=== PATIENT | male | born 1975 | race African-American/Black ===

== ENCOUNTER 2018-08-03 22:08 | Emergency (ER) | payer SELFPAY ==
[~2018-08-03] VITALS: Ht 175.3 cm; Wt 72.6 kg
[~2018-08-03 22:08] MED LIST: NAPR250T6 PO; OXYC1TAB15 PO
[2018-08-04 00:10] LABS: BASO # 0.1 x10^3/uL (0.0-0.2); BASO % 1 % (0-3); EOS # 0.2 x10^3/uL (0.0-0.7); EOS % 2 % (0-3); HEMOGLOBIN 12.4 g/dL (13.0-17.5); LYMPH # 2.8 x10^3/uL (1.0-4.8); LYMPH % 27 % (24-48); MEAN CORPUSCULAR HEMOGLOBIN 25 pg (25-35); MEAN CORPUSCULAR HGB CONC 33 g/dL (31-37); MEAN CORPUSCULAR VOLUME 77 fL (79-100); MONO # 0.8 x10^3/uL (0.0-1.1); MONO % 8 % (0-9); NEUT # 6.4 x10^3uL (1.8-7.7); NEUT % 62 % (31-73); PLATELET COUNT 263 x10^3/uL (140-400); RED BLOOD COUNT 4.96 x10^6/uL (4.30-5.70); RED CELL DISTRIBUTION WIDTH 16.6 % (11.5-14.5); WHITE BLOOD COUNT 10.3 x10^3/uL (4.0-11.0)
[2018-08-04 00:21] LABS: CALCIUM 9.1 mg/dL (8.5-10.1); CREATININE 0.8 mg/dL (0.7-1.3); GFR 127.7; POTASSIUM 3.6 mmol/L (3.5-5.1)
[2018-08-04 00:24] LABS: ALBUMIN 3.8 g/dL (3.4-5.0); ALBUMIN/GLOBULIN RATIO 1.1 (1.0-1.7); TOTAL BILIRUBIN 0.1 mg/dL (0.2-1.0); TOTAL PROTEIN 7.4 g/dL (6.4-8.2)
[2018-08-04] MEDS ORDERED: IV NORMAL SALINE 1000ML BAG 1,000 ML IV ONE (00:30)
[2018-08-04] MEDS ORDERED: ONDANSETRON PF 4 MG/2 ML VIAL. IV ONE (00:30)
[2018-08-04] MEDS ORDERED: DICYCLOMINE 20 MG/2 ML AMPUL. IM ONE (00:30)
[2018-08-04] MEDS ORDERED: fentaNYL PF VIAL 100 MCG/2 ML VIAL IV ONE (00:30)
[2018-08-04] MEDS ORDERED: DICY10CA3 PO (01:09)
[2018-08-04] MEDS ORDERED: ONDA4TAB12 PO (01:09)
--- NOTE | 2018-08-04 01:12 | PHYS DOC ---
Past Medical History Past Medical History: Prostatitis, Other Additional Past Medical Histor: enlarged prostate (RODNEY JENNINGS APRN) Past Surgical History: No Surgical History (RODNEY JENNINGS APRN) Alcohol Use: None Drug Use: Marijuana (RODNEY JENNINGS APRN) Adult General Chief Complaint Chief Complaint: MULTIPLE COMPLAINTS HPI HPI 43-year-old male presents to ER for complaints of abdominal pain, decreased urination, and N/V/D. Pt is anxious and had reported concerns of prostatitis to RN during triage- questioned pt on pain he was experiencing as he reported pain between scrotum and anus with RN. He is denying scrotal/testicular/groin pain to this provider. He reports his pain is in his abd. He does voice concerns for prostate issues as he has had enlarged prostate and family has hx of prostate cancer. Pt reports he has had abd pain in lower abd with N/V for past 2 days. During initial discussion he changes his complaint and reports abd pain is diffuse in all abd. He reports he has not had much fluid intake in past 2 days so he thinks he is dehydrated. He denies dysuria/hematuria, fever, lower back pain, or abd distention. He took tramadol 2 days ago for pain with minimal relief. He reports BMs have been diarrhea- denies bloody stools. He denies SOA, CP, palpitations, or swelling. Pt is daily smoker and occasional marijuana smoker. He denies any alcohol recently or other illicit drugs. Pt voiced concerns of urinary retention- RN reported 50cc on bladder scan. Pt was able to provide UA specimen. (RODNEY JENNINGS APRN) Review of Systems Review of Systems Constitutional: Reports felt feverish with generalized fatigue Eyes: Denies change in visual acuity, redness, or eye pain [] HENT: Denies nasal congestion or sore throat [] Respiratory: Denies cough or shortness of breath [] Cardiovascular: Denies CP/palpitations GI: Denies bloody stools. Reports diffuse abd pain with N/V/D : Denies dysuria or hematuria. Reports decreased urine output. Denies scrotal/testicular pain or swelling to this provider Musculoskeletal: Denies back/neck pain or joint pain [] Integument: Denies rash or skin lesions [] Neurologic: Denies headache, focal weakness or sensory changes. Denies dizziness Endocrine: Denies polyuria or polydipsia [] All other systems were reviewed and found to be within normal limits, except as documented in this note. (REFFITT,RODNEY Vargas APRN) Current Medications Current Medications Current Medications Medications (Trade) Dose Ordered Sig/Scott Start Time Stop Time Status Last Admin Dose Admin Dicyclomine HCl (Bentyl) 20 mg 1X ONCE 08/04/18 00:30 08/04/18 00:31 DC 08/04/18 00:34 20 MG Fentanyl Citrate (Fentanyl 2ml Vial) 50 mcg 1X ONCE 08/04/18 00:30 08/04/18 00:31 DC 08/04/18 00:34 50 MCG Ondansetron HCl (Zofran) 4 mg 1X ONCE 08/04/18 00:30 08/04/18 00:31 DC 08/04/18 00:34 4 MG Sodium Chloride 1,000 ml @ 1,000 mls/hr 1X ONCE 08/04/18 00:30 08/04/18 01:29 DC 08/04/18 00:33 1,000 MLS/HR (ESSENCE OLSEN DO) Allergies Allergies Allergies Coded Allergies Type Severity Reaction Last Updated Verified Penicillins Allergy Intermediate 02/03/16 Yes (ESSENCE OLSEN DO) Physical Exam Physical Exam Constitutional: Well developed, well nourished, no acute distress, non-toxic ap pearance. [] HENT: Normocephalic, atraumatic, mucous membranes pink/dry, nose normal. [] Eyes: Pupils equal, conjunctiva normal, no discharge. [] Neck: Normal range of motion, no tenderness, supple, no stridor. [] Cardiovascular:Heart rate regular rhythm, no murmur [] Lungs & Thorax: Bilateral breath sounds clear to auscultation- resp. equal/nonlabored Abdomen: Bowel sounds normal, soft- no distention/rigidity, diffuse tenderness in all abd no rebound tenderness, no masses, no pulsatile masses. Pt refused exam- denied any testicular/scrotal/penile pain/discharge during this provider's exam Skin: Warm, dry, no erythema, no rash. [] Back: No tenderness, no CVA tenderness. [] Extremities: No tenderness, no cyanosis, no clubbing, ROM intact, no edema. [] Neurologic: Alert and oriented X 3, normal motor function, normal sensory function, no focal deficits noted. [] Psychologic: Affect normal, judgement normal, anxious during initial exam- cooperative and no uncontrollable behavior. Reports anxiety d/t uncertainty as to what's causing his sxs (REFFITT,RODNEY Vargas ADDY) Current Patient Data Vital Signs Vital Signs Date Time Temp Pulse Resp B/P (MAP) Pulse Ox O2 Delivery O2 Flow Rate FiO2 08/04/18 01:54 68 20 110/56 (74) 98 Room Air 08/03/18 22:46 98.2 98.2 (ESSENCE OLSEN DO) Lab Values Laboratory Tests Test 08/03/18 23:00 08/04/18 01:20 White Blood Count 10.3 x10^3/uL (4.0-11.0) Red Blood Count 4.96 x10^6/uL (4.30-5.70) Hemoglobin 12.4 g/dL (13.0-17.5) L Hematocrit 38.0 % (39.0-53.0) L Mean Corpuscular Volume 77 fL (79-100) L Mean Corpuscular Hemoglobin 25 pg (25-35) Mean Corpuscular Hemoglobin Concent 33 g/dL (31-37) Red Cell Distribution Width 16.6 % (11.5-14.5) H Platelet Count 263 x10^3/uL (140-400) Neutrophils (%) (Auto) 62 % (31-73) Lymphocytes (%) (Auto) 27 % (24-48) Monocytes (%) (Auto) 8 % (0-9) Eosinophils (%) (Auto) 2 % (0-3) Basophils (%) (Auto) 1 % (0-3) Neutrophils # (Auto) 6.4 x10^3uL (1.8-7.7) Lymphocytes # (Auto) 2.8 x10^3/uL (1.0-4.8) Monocytes # (Auto) 0.8 x10^3/uL (0.0-1.1) Eosinophils # (Auto) 0.2 x10^3/uL (0.0-0.7) Basophils # (Auto) 0.1 x10^3/uL (0.0-0.2) Sodium Level 142 mmol/L (136-145) Potassium Level 3.6 mmol/L (3.5-5.1) Chloride Level 104 mmol/L (98-107) Carbon Dioxide Level 28 mmol/L (21-32) Anion Gap 10 (6-14) Blood Urea Nitrogen 9 mg/dL (8-26) Creatinine 0.8 mg/dL (0.7-1.3) Estimated GFR (Cockcroft-Gault) 127.7 BUN/Creatinine Ratio 11 (6-20) Glucose Level 84 mg/dL (70-99) Calcium Level 9.1 mg/dL (8.5-10.1) Total Bilirubin 0.1 mg/dL (0.2-1.0) L Aspartate Amino Transferase (AST) 21 U/L (15-37) Alanine Aminotransferase (ALT) 17 U/L (16-63) Alkaline Phosphatase 107 U/L (46-116) Total Protein 7.4 g/dL (6.4-8.2) Albumin 3.8 g/dL (3.4-5.0) Albumin/Globulin Ratio 1.1 (1.0-1.7) Lipase 176 U/L (73-393) Urine Collection Type Unknown Urine Color Yellow Urine Clarity Clear Urine pH 6.5 Urine Specific [place] <=1.005 Urine Protein Negative mg/dL (NEG-TRACE) Urine Glucose (UA) Negative mg/dL (NEG) Urine Ketones (Stick) Negative mg/dL (NEG) Urine Blood Negative (NEG) Urine Nitrite Negative (NEG) Urine Bilirubin Negative (NEG) Urine Urobilinogen Dipstick 0.2 mg/dL (0.2 mg/dL) Urine Leukocyte Esterase Negative (NEG) Urine RBC Occ /HPF (0-2) Urine WBC 1-4 /HPF (0-4) Urine Squamous Epithelial Cells Occ /LPF Urine Bacteria 0 /HPF (0-FEW) Urine Mucus Slight /LPF Laboratory Tests 08/03/18 23:00 Laboratory Tests 08/03/18 23:00 (ESSENCE OLSEN DO) EKG EKG [] (RODNEY JENNINGS APRN) Radiology/Procedures Radiology/Procedures [] (RODNEY JENNINGS APRN) Course & Med Decision Making Course & Med Decision Making Pertinent Labs reviewed. (See chart for details) Pt was evaluated in the ER for c/o abd pain with concerns of urinary retention and dehydration. Pt had no urinary retention- his UA was neg. for infection/ketones/blood. He had NL WBCs on labs at 10.3 with CMP NL. Renal function NL. Pt was given IV flds, nausea and pain medication and reported his sxs much improved. Pt preferred not to have rectal/genital exam while in the ER as his sxs had improved. He was advised to f/u with urology with his concerns of prostate issues. He had denies any scrotal/testicular pain or penile discharge/lesions/rash to this provider. Test results were discussed with pt along with discharge plan. Education provided on s&s to return to ER for and d/c instructions were discussed. Pt remained nontoxic in appearance and at time of discussion was in no distress. Will provide urology referral info and Rxs for Zofran/Dicyclomine. Pt advised on increasing fluid intake and use of tylenol/ibuprofen PRN. (RODNEY JENNINGS APRN) Dragon Disclaimer Dragon Disclaimer This electronic medical record was generated, in whole or in part, using a voice recognition dictation system. (RODNEY JENNINGS APRN) Departure Departure Impression: Primary Impression: Abdominal pain Additional Impressions: Nausea & vomiting Diarrhea Disposition: 01 HOME, SELF-CARE Condition: STABLE Referrals: NO PCP (PCP) FLETCHER AUGUSTIN MD Patient Instructions: Abdominal Pain, Diarrhea, Nausea and Vomiting Additional Instructions: Drink plenty of fluids. Slowly advance diet as tolerated. If symptoms persist follow-up with your primary doctor and/or a gastrointestinal (GI) doctor for re-evaluation and further care. Scripts Dicyclomine Hcl (DICYCLOMINE HCL) 10 Mg Capsule 1 CAP PO PRN Q6HRS PRN for PAIN, #10 CAP 0 Refills Prov: RODNEY JENNINGS APRN 08/04/18 Ondansetron (ONDANSETRON ODT) 4 Mg Tab.rapdis 1 TAB PO PRN Q6-8HRS PRN for NAUSEA, #8 TAB 0 Refills Prov: RODNEY JENNINGS APRN 08/04/18 Attending Signature Attending Signature I have reviewed the PA/[employer] SUPERVISOR's note and plan of care. I was available for consultation as needed during the patient's visit in the emergency department. I agree with the clinical impression, plan, and disposition. (ESSENCE OLSEN DO) Attending Signature I have participated in the care of this patient and I have reviewed and agree with all pertinent clinical information above including history, exam, and recommendations. (RODNEY JENNINGS APRN) Problem Qualifiers RODNEY JENNINGS APRN Aug 04, 2018 01:12 ESSENCE OLSEN DO Aug 04, 2018 02:15
[2018-08-04 01:42] LABS: BILIRUBIN,URINE NEGATIVE (NEG); CLARITY,URINE CLEAR; COLOR,URINE YELLOW; NITRITE,URINE NEGATIVE (NEG); PH,URINE 6.5; PROTEIN,URINE NEGATIVE (NEG-TRACE); UROBILINOGEN,URINE 0.2 mg/dL (0.2 mg/dL)
[2018-08-04 01:47] LABS: BACTERIA,URINE 0 /HPF (0-FEW); RBC,URINE OCC /HPF (0-2)
[2018-08-04 01:48] LABS: SQUAMOUS EPITHELIAL CELL,UR OCC /LPF
[2018-08-04 01:54] VITALS: BP 110/56
== END 2018-08-04 02:21 | disposition home or self-care (01) ==
LOC: ER 22:08
DX: R10.84 Generalized abdominal pain (principal); R11.2 Nausea with vomiting, unspecified; R19.7 Diarrhea, unspecified; R50.9 Fever, unspecified; R53.83 Other fatigue; Z88.0 Allergy status to penicillin
CPT/HCPCS: 36415; 80053; 81001; 83690; 85025; 96361; 96372; 96374; 96375; 99284; J0500; J2405; J3010; J7030